=== PATIENT | male | born 1995 | race Caucasian/White ===

== ENCOUNTER 2022-03-25 17:27 | Emergency (ER) | payer SELFPAY ==
--- NOTE | 2022-03-25 18:36 | ED.GENADUL_ITS ---
Discharge Plan Disposition Patient Disposition: HOME Condition: Stable Discharge Details Clinical Impression: Abrasion, corneal Primary Care Provider: Unknown,Unknown ED Provider: Gisela Kimball Home Meds and New Rx's Prescriptions: No Action azithromycin 250 mg tablet 1,000 mg PO ONCE Qty: 4 0RF Rx Instructions: Take in a single dose albuterol sulfate [ProAir HFA] 200 PUFF HFA aerosol inhaler 1 inh Inhalation PRN PRN prednisone 20 MG tablet 20 mg PO BID Qty: 10 0RF albuterol sulfate [ProAir HFA] 8.5 GM HFA aerosol inhaler 2 puff Inhalation Q6H Qty: 1 0RF Discharge Instructions Instructions: Erythromycin (Into the eye), Corneal Abrasion (ED) Additional Instructions: Your exam is concerning for corneal abrasion today. To prevent infection,please apply 1 cm of the erythromycin ointment into your right eye 4 times daily for the next 5 days. I would also like for you to follow-up with [facility], please call Monday to schedule appointment as soon as possible for reevaluation. Your tetanus is updated today. Our lpn care manager team will reach out to you to help establish primary care and insurance. If you develop fevers/chills, increased pain, visual changes, discharge or other new/worsening symptoms please seek care urgently once again. Referrals: [facility] [Outside] Discharge Data Discharge Date/Time-TO BE ENTERED AT DEPARTURE: 03/25/22 19:20 Medical Decision Making Patient is a pleasant 26-year-old gentleman presenting today with chief complaint of foreign body in right thigh. He states that earlier he was cleaning his house and believes that he may have gotten a piece of paint or debris in his eye. Unknown tetanus status, believes it is in over 10 years. He denies any visual changes. States that he tried to wash that he did see some foreign debris in the upper lid which she removed. He denies other injury the time of the incident. On exam, patient appears nontoxic. He has no foreign body retained in the lives, both the upper and lower lids were everted. Tetracaine was applied and patient had complete resolution of symptoms. Conjunctival injection is noted. Patient has small abrasion just inferior to the pupil on fluorescein exam. No full thickness injury, no hyphema. No pain to palpation externally or evidence of significant injury such as globe rupture. Patient I discussed treatment plan. Again, no evidence of retained foreign body at this time, more consistent with corneal abrasion. Will use erythromycin to help prevent infection. Tetanus will be updated today. Advised to follow-up with [facility]. Patient also does not have local primary care or health insurance, I have asked her care coordinators to contact the patient to discuss this further. Strict return precautions were discussed. All questions and concerns were addressed in agreement this plan. He will call [facility] on Monday to schedule prompt f/u for reevaluaiton. Hoping he will be able to ve evaluated Monday HPI General Date/Time Provider Initiated Documentation: 03/25/22 18:36 . Limitations to Documentation: no limitations . Information obtained by: patient and RN notes reviewed . History of Present Illness 26 year old M presents to the emergency department with the chief complaint of FB right eye, described as severe, with intensity rated at 8. Quality is described as burning, and is localized to the eyes. Patient reports no radiation. Patient started experiencing this hour(s) and it has been constant. No relieving factors improve symptom(s), No exacerbating factors reported . Patient notes no other symptoms.. Patient did receive the following treatments prior to arrival, other (washed eye) Related Data Home Medications Medication Instructions Recorded Confirmed albuterol sulfate 90 mcg/actuation 1 inh inhalation PRN PRN 05/22/15 05/22/15 aerosol inhaler (ProAir HFA) albuterol sulfate 90 mcg/actuation 2 puff inhalation Q6H ##1 05/22/15 aerosol inhaler (ProAir HFA) prednisone 20 mg tablet 20 mg PO BID #10 tabs 05/22/15 azithromycin 250 mg tablet 1,000 mg PO ONCE #4 tabs 12/11/19 Previous Rx's Medication Instructions Recorded albuterol sulfate 90 mcg/actuation 2 puff inhalation Q6H ##1 05/22/15 aerosol inhaler (ProAir HFA) prednisone 20 mg tablet 20 mg PO BID #10 tabs 05/22/15 azithromycin 250 mg tablet 1,000 mg PO ONCE #4 tabs 12/11/19 Allergies Allergy/AdvReac Type Severity Reaction Status Date / Time seasonal Allergy Mild Wheezing Uncoded 05/22/15 14:17 General Stated Complaint: EyeProblem ARIELLA: 3 Review of Systems Constitutional Constitutional: Reports as per HPI, Denies chills, Denies fever(s) and Denies headache(s) Eyes Eyes: Reports as per HPI ENT Ears, Nose, Mouth, and Throat: Denies headache(s) Respiratory Respiratory: Denies cough Integumentary/Breasts Skin/Breast: Reports as per HPI, Denies rash, Denies skin pain and Denies skin swelling Neurologic Neurologic: Denies headache(s) PFSH All Active Problems (Updated 03/25/22 @ 19:00 by BART Dawson) Abrasion, corneal (Acute) Social History Smoking/Tobacco Use Status: Never Smoking risk assessment performed?: Yes Drug use: Never Do you feel safe at home: Yes Do you feel safe in your relationship?: Yes Exam Const General: cooperative, healthy appearing, comfortable, no acute distress, well developed and well groomed Nutritional Appearance: average body habitus and well nourished Orientation: alert, awake and oriented x3 HENMT Head: normal to inspection, normocephalic and atraumatic Ears: hearing grossly normal bilaterally and external ears normal General nose exam: external nose normal and nares normal Face and sinus: normal facial exam and face symmetric Mouth: oral mucosae normal, lip normal and moist mucous membranes Eyes Alignment and Position: alignment normal and position normal Periorbital: periorbital findings normal Eyelids: eyelids normal Conjunctivae: conjunctival abnormality right conjunctival injection Cornea: corneas abnormal on the right fluorescein used and abrasion at the following clock position (6) and fluorescein used Pupils: PERRL EOM: EOM intact bilaterally Resp Effort & Inspection: normal respiratory effort, able to speak in complete sentences and no respiratory distress Skin General skin exam: no rashes or lesions noted Neuro General: patient alert, patient awake and patient oriented x3 Cranial Nerves: CN's II-XI intact bilaterally Cognition: normal cognition Speech: speech normal Gait: normal gait Psych Appearance: grossly normal and well kempt Mental Status: mental status grossly normal Speech and Movement: speech and movement normal Course Vital Signs Vital signs: Pain Level 8 03/25/22 18:27
[2022-03-25] MEDS: Erythromycin Ophth Oint 3.5 GM TUBE OD (19:14)
[2022-03-25] MEDS: Tetracaine 0.5% 4 ML BTL (19:19)
[2022-03-25] MEDS: Fluorescein STRIPS 100/BOX 1 MG (19:19)
--- NOTE | 2022-03-26 03:43 | NUR.NOTE ---
Referral faxed to [facility] to f/u 03/28/22 for corneal abrasion. Copy to Care Management to establish pcp and help with resources for insurance.Nursing Note:
== END 2022-03-25 19:20 | disposition home or self-care (01) ==
PROVIDERS: Emergency Provider Physician Assistant
DX: S05.01XA Injury of conjunctiva and corneal abrasion without foreign body, right eye, initial encounter (principal); X58.XXXA Exposure to other specified factors, initial encounter
CPT/HCPCS: 90471; 99284; 99283

== ENCOUNTER 2022-09-02 21:50 | Emergency (ER) | payer SELFPAY ==
[2022-09-02 21:56] VITALS: BP 150/108; PULSE 88; RESP 16; TEMP 36.6; O2SAT 100
--- NOTE | 2022-09-02 22:07 | ED.GENADUL_ITS ---
Discharge Plan Disposition Patient Disposition: HOME Condition: Stable Discharge Details Clinical Impression: Animal bite of right thumb Primary Care Provider: Unknown,Unknown ED Provider: Nadia Montes Home Meds and New Rx's Prescriptions: No Action azithromycin 250 mg tablet 1,000 mg PO ONCE Qty: 4 0RF Rx Instructions: Take in a single dose albuterol sulfate [ProAir HFA] 200 PUFF HFA aerosol inhaler 1 inh Inhalation PRN PRN prednisone 20 MG tablet 20 mg PO BID Qty: 10 0RF albuterol sulfate [ProAir HFA] 8.5 GM HFA aerosol inhaler 2 puff Inhalation Q6H Qty: 1 0RF Discharge Instructions Instructions: Rabies Vaccine (By injection), Animal Bite (ED) Additional Instructions: You were given the first rabies vaccine and immunoglobulin today. You need to return on day 3-day 7 and day 14 for the additional rabies vaccines. You may present to urgent care or your primary care provider. Change the dressing daily. Allowed to air dry at least 1 to 2 hours a day. You may apply bacitracin or antibiotic ointment for the first 1 to 2 days. After that please allow to air dry. Keep clean. Keep it covered when you are out working. Please be seen sooner for any signs of infection including increased redness, r ed streaks or drainage. Please take Tylenol or Ibuprofen with food every 4-6 hours as needed for pain and swelling. Follow up with primary care provider in 3-5 days. Return to ED sooner if any worsening or concerns. Increase oral fluids. Stand Alone Forms: Work Release Medical Decision Making Rabies immunoglobulin and rabies vaccine ordered. Wound care performed by staff attorney irrigated with normal saline and chlorhexidine. I infiltrated the immunoglobulin around the thumb wound patient tolerated well. Therefore Xeroform dressing applied and Coban. Do not want to close this wound at this time due to risk of infection. Order for rabies vaccine filled out for day 3 7 and 14. Discussed home care with patient who verbalized understanding. HPI General Mode of arrival: ambulatory . Date/Time Provider Initiated Documentation: 09/02/22 21:51 . Limitations to Documentation: no limitations . Information obtained by: patient, RN notes reviewed and old records reviewed . HPI Narrative: 26-year-old male presents to the ER after approximately 30 minutes prior to arrival he was out hunting and his dog encountered a raccoon. He reports pulling the dog out the raccoon and the raccoon was still alive he came up and bit his right hand. He does have a laceration noted to his right thumb which is bleeding. He is up-to-date on his tetanus vaccination last in March of this year. I did discuss rabies postexposure prophylaxis with him he verbalizes understanding is in agreement with with receiving the treatment. Related Data Home Medications Medication Instructions Recorded Confirmed albuterol sulfate 90 mcg/actuation 1 inh inhalation PRN PRN 05/22/15 05/22/15 aerosol inhaler (ProAir HFA) albuterol sulfate 90 mcg/actuation 2 puff inhalation Q6H ##1 05/22/15 aerosol inhaler (ProAir HFA) prednisone 20 mg tablet 20 mg PO BID #10 tabs 05/22/15 azithromycin 250 mg tablet 1,000 mg PO ONCE #4 tabs 12/11/19 Previous Rx's Medication Instructions Recorded albuterol sulfate 90 mcg/actuation 2 puff inhalation Q6H ##1 05/22/15 aerosol inhaler (ProAir HFA) prednisone 20 mg tablet 20 mg PO BID #10 tabs 05/22/15 azithromycin 250 mg tablet 1,000 mg PO ONCE #4 tabs 12/11/19 Allergies Allergy/AdvReac Type Severity Reaction Status Date / Time seasonal Allergy Mild Wheezing Uncoded 05/22/15 14:17 General Stated Complaint: AnimalBite ARIELLA: 3 PFSH All Active Problems (Updated 09/02/22 @ 23:38 by Nadia Montes NP) Animal bite of right thumb (Acute) Social History Smoking/Tobacco Use Status: Never Smoking risk assessment performed?: Yes Alcohol Intake: former Drug use: Never Do you feel safe at home: Yes Do you feel safe in your relationship?: Yes Exam Extrem Right upper extremity: hand Details: normal capillary refill, neurosensory exam normal, tendon exam normal and laceration thumb palmar aspect central Details: irregular, Y-shaped, contaminated, with motor nerve function intact and with sensation intact; no pulsatile bleeding Hand/finger images: 1. Laceration noted (Raccoon bite) 2. Superficial abrasion, linear 3. Superficial puncture wound Course Vital Signs Vital signs: Vital Signs Temperature 36.6 C 09/02/22 21:56 Pulse 88 09/02/22 21:56 Respiratory Rate 16 09/02/22 21:56 Blood Pressure 150/108 H 09/02/22 21:56 Pulse Oximetry 100 09/02/22 21:56 Temperature 36.6 C 09/02/22 21:56 Temperature Source Tympanic 09/02/22 21:56 Pulse 88 09/02/22 21:56 Respiratory Rate 16 09/02/22 21:56 Blood Pressure 150/108 H 09/02/22 21:56 Blood Pressure Position Sitting 09/02/22 21:56 Pulse Oximetry 100 09/02/22 21:56 Oxygen Delivery Method Room Air 09/02/22 21:56 Oxygen Flow Rate 0 09/02/22 21:56 Pain Level 4 09/02/22 21:56
[2022-09-02] MEDS: Lidocaine/Epinephri/Tetracaine Topical Gel 3 ML TP (22:38)
[2022-09-02] MEDS: Rabies Immune Globulin 300 UNIT/ML VIAL 1700 UNIT IM (23:44)
== END 2022-09-02 23:57 | disposition home or self-care (01) ==
PROVIDERS: Emergency Provider Registered Nurse Emergency
DX: S61.051A Open bite of right thumb without damage to nail, initial encounter (principal); Z20.3 Contact with and (suspected) exposure to rabies; Z29.14 Encounter for prophylactic rabies immune globulin; Z23 Encounter for immunization; W55.51XA Bitten by raccoon, initial encounter
CPT/HCPCS: 90471; 96372; 99284; 90675; 99283

== ENCOUNTER 2022-09-05 15:22 | Emergency (ER) | payer SELFPAY ==
--- NOTE | 2022-09-05 15:25 | ED.GENADUL_ITS ---
Discharge Plan Disposition Patient Disposition: HOME Condition: Good Discharge Details Chief Complaint: Recheck Clinical Impression: Encounter for wound re-check Primary Care Provider: Unknown,Unknown ED Provider: Arian Chaves Home Meds and New Rx's Prescriptions: No Action albuterol sulfate [ProAir HFA] 200 PUFF HFA aerosol inhaler 1 inh Inhalation PRN PRN Discharge Instructions Additional Instructions: Please follow-up at your scheduled appointments here at the infusion center. Please monitor closely for any redness drainage swelling or worsening pain. If you notice any worsening of your symptoms, or any new symptoms such as vomiting, diarrhea, fever, chills, shortness of breath, chest pain, numbness, weakness, or fainting , please return immediately to the emergency department for reevaluation. Please follow up with your primary care provider as soon as possible for reassessment and reevaluation. As always, it was a pleasure participating in your medical care today. Medical Decision Making This is a pleasant 26-year-old male who presents for his second dose of the rabies vaccine. Patient was bitten in the hand by a raccoon on his right thumb 3 to 4 days ago. He states the area has been doing well. He denies any new redness or swelling. He does still admit to tingling on the tip of his thumb but does not want any further evaluation performed on this. No other complaints at this time. No other modifying factors. Of note he was supposed to go to the infusion center today, but unfortunately the appointment was scheduled for him, and because of this he is presenting to the ER for shot. Exam demonstrates a well-appearing right thumb, with good movement and strength. Lacerations appear clean and dry and intact. No significant redness, purulence or discharge. Subjective tingling and decreased two-point discrimination is noted on the tip. However capillary refill is brisk. I did offer orthopedic follow-up however the patient states that he does not want this. He states that it is not a big deal, I will be fine. I did let him know that the sensation may not come back, and if at any point he changes his mind we are happy to place a referral for him. Patient was given his repeat vaccine. He knows the dates for which she should return. He will be scheduled to follow-up with the infusion center. He was monitored after the shot. No reactions. Patient stable for discharge. No indication for antibiotics at this time. No evidence of infection. I have extensively reviewed the treatment plan and discharge instructions with the patient. I have addressed all patient concerns at this time. The patient was made aware of what symptoms to monitor for that would martin ant a return to the emergency department. Discussed the plan with the patient, they demonstrate verbal understanding and agreement with our assessment and plan at this time. The documentation in this chart was dictated using [employer] dictation software. Please excuse any dictation errors. HPI General Date/Time Provider Initiated Documentation: 09/05/22 15:24 . HPI Narrative: This is a pleasant 26-year-old male who presents for his second dose of the rabies vaccine. Patient was bitten in the hand by a raccoon on his right thumb 3 to 4 days ago. He states the area has been doing well. He denies any new redness or swelling. He does still admit to tingling on the tip of his thumb but does not want any further evaluation performed on this. No other complaints at this time. No other modifying factors. Of note he was supposed to go to the infusion center today, but unfortunately the appointment was scheduled for him, and because of this he is presenting to the ER for shot. Related Data Home Medications Medication Instructions Recorded Confirmed albuterol sulfate 90 mcg/actuation 1 inh inhalation PRN PRN 05/22/15 09/05/22 aerosol inhaler (ProAir HFA) Allergies Allergy/AdvReac Type Severity Reaction Status Date / Time seasonal Allergy Mild Wheezing Uncoded 09/05/22 14:44 General ARIELLA: 4 Review of Systems All systems reviewed & are unremarkable except as noted in HPI and below PFSH All Active Problems (Updated 09/05/22 @ 15:41 by Arian Chaves DO) Animal bite of right thumb (Acute) Encounter for wound re-check (Acute) Social History Smoking/Tobacco Use Status: Never Smoking risk assessment performed?: Yes Alcohol Intake: former Drug use: Never Do you feel safe at home: Yes Do you feel safe in your relationship?: Yes Exam Narrative Exam Narrative: 1.Const: Well-nourished, Well-developed, appearing stated age 2.Eyes: PERRL, no conjunctival injection, and symmetrical lids. 3.ENT: Atraumatic external nose and ears. Moist MM. Neck: Symmetric, trachea midline, No thyromegaly. 4.CVS: +S1/S2, No murmurs or gallops. Peripheral pulses 2+ and equal in all extremities. Brisk capillary refill in all extremities. 5.RESP: Unlabored respiratory effort. Clear to auscultation bilaterally. No wh eezes rales or rhonchi 6.GI: Soft, Nontender/Nondistended, No hepatosplenomegaly. No guarding or rebound. 7.MSK: Normocephalic the patient's right thumb demonstrates good flexion and extension, all other movements of the thumb and the thenar eminence are intact. Patient has slightly decreased two-point discrimination at the tip of the thumb. Subjective tingling is present. Brisk capillary refill is noted. Incision appears clean and dry. It appears to be healing well with no purulence, abscess or significant swelling. No streaking redness. 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 Sensation grossly intact aside for associated notes in musculoskeletal, no focal neurologic deficits. 10.Psych: (AAO) x3. Appropriate mood and affect
--- NOTE | 2022-09-05 18:50 | NUR.NOTE ---
Nursing Note: REFERRAL TO [facility] FOR INFUSION FOR RABIES
== END 2022-09-05 16:22 | disposition home or self-care (01) ==
PROVIDERS: Emergency Provider Student in an Organized Health Care Education/Training Program
DX: S61.051A Open bite of right thumb without damage to nail, initial encounter (principal); W55.51XA Bitten by raccoon, initial encounter
CPT/HCPCS: 90471; 99284; 90675; 99281

== ENCOUNTER 2022-09-16 01:13 | Outpatient (RCR) | payer SELFPAY | END 2022-10-05 23:59 | disposition home or self-care (01) | LOC: INF 01:13 | PROVIDERS: Visit Provider Physician Assistant | DX: Z20.3 Contact with and (suspected) exposure to rabies (principal) | CPT/HCPCS: 90471; 90675 ==